=== PATIENT | female | born 1940 | race Caucasian/White ===

== ENCOUNTER → 2016-06-14 | Day surgery (SDC) | payer OTHER ==
[~2016-06-14] VITALS: Ht 170.2 cm; Wt 74.8 kg
--- NOTE | 2016-06-14 11:02 | RADIOLOGY REPORT ---
EXAMINATION: XR PORTABLE CHEST CLINICAL INFORMATION: Status post pacemaker generator change. COMPARISON: 04/30/2016. TECHNIQUE: Portable view of the chest was obtained. FINDINGS: Lead right subclavian pacer and its wires are again noted with the new slightly different appearing generator on today's examination. There is volume loss of the right hemithorax, likely postsurgical. A triangular shaped opacity in the right upper lung field has improved. There is a stable irregular mixed density mass in the left apical region. Lung volumes are somewhat diminished on today's exam with chronic underlying COPD changes again noted. Osseous structures appear unchanged. IMPRESSION: Improved right upper lung opacity, low lung volumes, findings are otherwise largely unchanged with a new generator a noted.
--- NOTE | 2016-06-18 13:28 | Proc Note Cardiology ---
Cardiology Procedure Procedure Date: 06/14/16 Cardiology Procedure(s): pacemaker generator insertion Pre-Operative Diagnosis: sick sinus syndrome Post-Operative Diagnosis: sick sinus syndrome Estimated Blood Loss: none Anesthesia: Local with lidocaine Procedure Findings: History: This patient is a 76 year old female with history of sick sinus syndrome s/p syncopal episode who has a permanent pacemaker placed in 1996. She now returns for pacemaker generator change due to the device being at end of life. This patient is not pacemaker dependent. Procedure: This patient was prepped and draped in the usual sterile fashion after having obtained informed consent. She was administered 1 gm of Ancef as prophylaxis against infection. After administering about 10ccs of Lidocaine for local anesthesia, an incision was then made in the right subclavicular space over her current pacemaker. The current pacemaker was removed and disconnected from the atrial and ventricular leads and the leads were immediately inserted into the new pacemaker generator device. The pocket was slightly enlarged and hemostasis was ensured prior to closing the incision with two layers of suture. The pacing parameters were then checked and determined to be acceptable. The patient was brought to recovery where a chest X-ray and 12 lead ECG were obtained. Pacemaker: [employer] Advisa MRI safe Pacemaker Model # [id number] with serial # [id number] Atrial Lead: Model # 2495Q69 Serial # [id number] Voltage: 0.5V Current: 1.0mA Impedance: 500 Ohms P wave: 2.5mV Ventricular Lead: Model # [id number] Serial # [id number] Voltage: 0.5V Current: 0.6mA Impedance: 843 Ohms R wave: 4.0 The patient tolerated this procedure well without complications.
== END ==
LOC: STS 01:49
DX: Z45.010 Encounter for checking and testing of cardiac pacemaker pulse generator [battery] (principal); I49.5 Sick sinus syndrome; E03.9 Hypothyroidism, unspecified; J44.9 Chronic obstructive pulmonary disease, unspecified
CPT/HCPCS: C1785; J0690; J2250